=== PATIENT | female | born 1980 | race African-American/Black ===

== ENCOUNTER 2021-01-08 14:08 | Emergency (ER) | payer OTHER, SELFPAY ==
--- NOTE | ~2021-01-08 | XR_ITS ---
EXAMINATION: XR chest 2V DATE: 01/08/2021 14:35 INDICATION: Left-sided chest pain TECHNIQUE: PA and lateral views of the chest were obtained. COMPARISON: Chest radiograph dated 03/27/2015 FINDINGS: The lungs remain clear with no focal airspace opacities, pulmonary edema, pleural effusion or pneumot horax. The cardiomediastinal silhouette is normal. Mild thoracic spondylosis. IMPRESSION: 1. No acute cardiopulmonary disease. Reviewed, dictated and finalized at location A.
--- NOTE | 2021-01-08 14:08 | ECG_ITS ---
Measurements Intervals [place] Rate: 87 P: 57 [place]: 153 QRS: 30 QRSD: 100 T: -12 QT: 352 QTc: 425 Interpretive Statements SINUS RHYTHM MINIMAL Q WAVES- HIGH LATERAL LEADS NONSPECIFIC ST & T-WAVE ABNORMALITY- INF/HIGH LAT LEADS BASELINE ARTIFACT- I, II, III, AVR, AVF BORDERLINE ECG Electronically Signed On 01-08-2021 14:35:35 CDT by Lisandro Freeman D.O.
[2021-01-08 14:10] VITALS: BP 136/73; PULSE 89; RESP 14; TEMP 36.5; O2SAT 98
[2021-01-08 14:56] LABS: Basophils Percent Auto 0.2 % (0.2-1.2); Eosinophils Absolute Auto 0.1 K/mm3 (0-0.3); Eosinophils Percent Auto 1.1 % (0-4.4); Hematocrit 37.4 % (37.0-47.0); Hemoglobin 12.2 g/dL (12.0-15.0); Immature Granulocyte Absolute 0.01 K/mm3 (0.00-0.031); Immature Granulocyte Percent A 0.2 % (0-0.5); Lymphocytes Absolute Auto 2.11 K/mm3 (0.9-3.2); Lymphocytes Percent Auto 33.3 % (18.3-44.2); Mean Corpuscular HGB Conc 32.6 g/dl (32-36); Mean Corpuscular Hemoglobin 29.3 pg (26-34); Mean Corpuscular Volume 89.9 fl (80-100); Monocytes Absolute Auto 0.4 K/mm3 (0.1-0.6); Monocytes Percent Auto 5.8 % (2.6-8.5); Neutrophils Absolute Auto 3.8 K/mm3 (1.3-6.7); Neutrophils Percent Auto 59.4 % (45.5-73.1); Platelet Count Result 246 k/mm3 (150-375); Red Blood Count 4.16 M/mm3 (4.2-5.4); Red Cell Distribution Width 14.2 % (11.5-14.5); White Blood Count 6.3 K/mm3 (4.5-10.0)
[2021-01-08 15:05] LABS: Anion Gap 8 mmol/L (8-16); Blood Urea Nitrogen 14 mg/dL (7-17); Calcium 9.3 mg/dL (8.4-10.2); Carbon Dioxide 27 mmol/L (22-30); Chloride 104 mmol/L (98-107); Estimated CRCL calculation 122 ml/min; Estimated Glomerular Filt Rate > 60; Glucose 107 mg/dL (65-110); Potassium 3.8 mmol/L (3.4-5.0); Prothrombin Time 12.7 Seconds (11.1-14.7); Sodium 139 mmol/L (137-145)
[2021-01-08 15:17] LABS: Troponin I < 0.012 ng/mL (0.000-0.034)
[2021-01-08 16:02] VITALS: PULSE 83; RESP 17; O2SAT 98
[2021-01-08 16:04] VITALS: PULSE 83
[2021-01-08 17:26] VITALS: BP 133/72; PULSE 77; RESP 16; O2SAT 99
[2021-01-08 17:49] LABS: Troponin I < 0.012 ng/mL (0.000-0.034)
--- NOTE | 2021-01-08 17:54 | ED.CHESTPAIN ---
HPI - Chest Pain General Chief Complaint: Chest Pain Stated Complaint: chest pain Time Seen by Provider: 01/08/21 14:58 History of Present Illness HPI narrative: Patient is a 40-year-old female who presents ER with intermittent chest pain. Ongoing for last week. Last episode today 2 hours prior to arrival. Center of her chest. No radiation. Occasionally feels like palpitations. Concerned because she has a family member with history of heart disease. No fevers or chills or sweats. No exertional change regarding her chest pain or shortness of breath. No previous history of CO. Related Data Home Medications Medication Instructions Recorded Confirmed labetalol DAILY 01/08/21 Allergies Allergy/AdvReac Type Severity Reaction Status Date / Time amlodipine Allergy Unknown Swelling Verified 01/08/21 16:08 aspirin Allergy Unknown Other Verified 01/08/21 16:08 lisinopril Allergy Unknown Swelling Verified 01/08/21 16:08 naproxen Allergy Unknown Unknown Verified 04/05/17 14:21 Review of Systems Review of Systems: All systems reviewed & are unremarkable except as noted in HPI and below Constitutional: Constitutional: Denies chills, Denies fever(s) and Denies weakness ENT: Denies nasal congestion and Denies sore throat Cardiovascular: Cardiovascular: Reports chest pain, Denies rapid heart rate and Denies radiating jaw, neck or arm pain Respiratory: Respiratory: Denies chest congestion, Denies cough, Reports dyspnea and Denies wheezing Gastrointestinal: Gastrointestinal: Denies abdominal pain, Denies nausea and Denies vomiting PMFSH Past Medical History Medical History (Updated 01/08/21 @ 19:01 by Celio Joyce MD) MERRY (generalized anxiety disorder) GERD without esophagitis PCOS (polycystic ovarian syndrome) Tachycardia, paroxysmal Surgical History Surgical History (Updated 01/08/21 @ 19:01 by Celio Joyce MD) No pertinent past surgical history Family History Family History (Updated 06/18/17 @ 12:57 by DOCTOR UNKNOWN) Father Hypertension Family history of diabetes mellitus in first degree relative Diabetes mellitus Mother Hypertension Family history of diabetes mellitus in first degree relative Family history of heart disease in male family member before age 55 Diabetes mellitus Sibling Hypertension Social History Social History Smoking status: Former smoker Second hand tobacco smoke exposure: No Smoking end date: 03/29/11 Alcohol intake: never Substance use type: marijuana Exam Narrative: GENERAL: Well-appearing, well-nourished, and in no acute distress. HEAD: Normocephalic, atraumatic. ENT: Mucous membranes moist. CHEST: Clear to auscultation. No respiratory distress. HEART: Regular rate and rhythm. Normal peripheral pulses. ABDOMEN: Soft, nontender, nondistended. EXTREMITIES: Normal range of motion. No edema. SKIN: Warm, dry, no rash. NEURO: Alert and oriented x3. PSYCH: Normal mood and affect. Course Course Emergency Course: Patient informed of results. Troponin is negative x2. Follow-up with PCP. Vital Signs Vital signs: Vital Signs Temperature 97.7 F 01/08/21 14:10 Pulse Rate 89 01/08/21 14:10 Respiratory Rate 14 01/08/21 14:10 Blood Pressure 136/73 01/08/21 14:10 Pulse Oximetry 98 01/08/21 14:10 Temperature 97.7 F 01/08/21 14:10 Pulse Rate 77 01/08/21 17:26 Respiratory Rate 16 01/08/21 17:26 Blood Pressure 133/72 01/08/21 17:26 Pulse Oximetry 99 01/08/21 17:26 MDM - Chest Pain Lab Data Result diagrams: 01/08/21 14:23 01/08/21 14:23 Labs: Lab Results 01/08/21 01/08/21 01/08/21 Range/Units 14:23 14:23 14:23 WBC 6.3 (4.5-10.0) K/mm3 RBC 4.16 L (4.2-5.4) M/mm3 Hgb 12.2 (12.0-15.0) g/dL Hct 37.4 (37.0-47.0) % MCV 89.9 (80-100) fl MCH 29.3 (26-34) pg MCHC 32.6 (32-36) g/dl RDW 14.2 (11.5-14.5) % Plt Count 246 (150-375)
[2021-01-08 19:18] VITALS: BP 136/74; PULSE 81; RESP 20; O2SAT 100
== END 2021-01-08 19:20 | disposition home or self-care (01) ==
PROVIDERS: Emergency Medicine; Emergency Provider Emergency Medicine
DX: R07.89 Other chest pain (principal); K21.9 Gastro-esophageal reflux disease without esophagitis; E28.2 Polycystic ovarian syndrome; R94.31 Abnormal electrocardiogram [ECG] [EKG]
CPT/HCPCS: 36415; 71046; 80048; 84484; 85025; 85610; 85730; 93005; 99284

== ENCOUNTER 2021-06-30 15:08 | Emergency (ER) | payer OTHER, SELFPAY ==
[2021-06-30 15:14] VITALS: BP 143/93; PULSE 94; RESP 16; TEMP 36.4; O2SAT 100
--- NOTE | 2021-06-30 15:15 | ED.GENADULT ---
HPI - General Adult General Chief complaint: Medical Clearance Stated complaint: Blood pressure. Time Seen by Provider: 06/30/21 15:23 Source: patient Mode of arrival: ambulatory Limitations: no limitations History of Present Illness HPI narrative: 40-year-old female presented requesting refill for labetalol. She states she is scheduled with a new PCP in about 2 weeks and has only about 1 pill left. She endorses occasional palpitations at rest. She denies chest pain, shortness of breath, wheezing, swelling, headache or dizziness. Related Data Allergies Allergy/AdvReac Type Severity Reaction Status Date / Time amlodipine Allergy Unknown Swelling Verified 06/30/21 15:18 aspirin Allergy Unknown Other Verified 06/30/21 15:18 lisinopril Allergy Unknown Swelling Verified 06/30/21 15:18 naproxen Allergy Unknown Unknown Verified 06/30/21 15:18 Review of Systems Review of Systems: CONSTITUTIONAL: Denies body aches, fever, chills, or sweats. EYES: Denies visual changes, redness, or discharge. ENT: Denies rhinorrhea, congestion, sore throat, or otalgia. CARDIOVASCULAR: Denies chest pain or edema. RESPIRATORY: Denies cough or dyspnea. GASTROINTESTINAL: Denies abdominal pain, nausea, vomiting, or diarrhea. GENITOURINARY: Denies dysuria or hematuria. SKIN: Denies rash, itching, or wounds. MUSCULOSKELETAL: Denies back pain, joint pain, or myalgia. NEUROLOGIC: Denies headache, numbness, tingling, or weakness. PSYCH: Denies depression or anxiety. All systems reviewed & are unremarkable except as noted in HPI and below PMFSH Past Medical History Medical History (Updated 06/30/21 @ 15:25 by Niyah Cuba APRN) MERRY (generalized anxiety disorder) GERD without esophagitis PCOS (polycystic ovarian syndrome) Tachycardia, paroxysmal Surgical History Surgical History No pertinent past surgical history Family History Family History Father Hypertension Family history of diabetes mellitus in first degree relative Diabetes mellitus Mother Hypertension Family history of diabetes mellitus in first degree relative Family history of heart disease in male family member before age 55 Diabetes mellitus Sibling Hypertension Social History Social History Smoking status: Former smoker Second hand tobacco smoke exposure: No Smoking end date: 03/29/11 Alcohol intake: never Substance use type: marijuana Comments At time of signature, I have reviewed and agree with nursing past medical, surgical, social and family history unless otherwise noted. Please see nursing chart for further information. There is no relevant family history pertinent to the presenting complaint Exam Narrative: GENERAL: Well-appearing, well-nourished HEAD: Normocephalic, atraumatic. EYES: EOMI. No redness or drainage. Conjunctivae normal. ENT: Mucous membranes pink and moist. No rhinorrhea. TMs normal bilaterally. Throat normal. Uvula midline. NECK: Normal AROM. Supple. No lymphadenopathy. CHEST: No respiratory distress. Clear to auscultation. HEART: Regular rate and rhythm. No murmur appreciated. Normal peripheral pulses. ABDOMEN: Soft, nontender, nondistended, normal active bowel sounds. MUSCULOSKELETAL: No bony tenderness. EXTREMITIES: Normal range of motion. No edema. SKIN: Warm, dry, no rash. Capillary refill normal. Normal skin turgor. NEURO: No focal deficits. Alert and oriented x3. Gait steady. PSYCH: Normal affect. No signs of depression or anxiety. Course Course Emergency Course: Patient is aware of diagnosis, understands and agrees to treatment plan. Anticipatory guidance given. Patient agrees to follow-up as directed and is aware of reasons to seek care at the emergency department. Portions of this record may have been created with voice recognition softwar
== END 2021-06-30 15:29 | disposition home or self-care (01) ==
PROVIDERS: Emergency Provider Nurse Practitioner Family
DX: I11.0 Hypertensive heart disease with heart failure (principal); Z76.0 Encounter for issue of repeat prescription; K21.9 Gastro-esophageal reflux disease without esophagitis; E28.2 Polycystic ovarian syndrome; Z87.891 Personal history of nicotine dependence; F12.90 Cannabis use, unspecified, uncomplicated
CPT/HCPCS: 99211; G0463

== ENCOUNTER 2024-03-14 07:37 | Emergency (ER) | payer OTHER, SELFPAY ==
--- NOTE | ~2024-03-14 | XR_ITS ---
3 VIEWS THORACIC SPINE Ordering provider: Jacobo Melchor MD History: . back pain X LAST WEEK AFTER BEING DX WITH PNEUMONIA . Comparison: None. FINDINGS: VERTEBRAL BODIES: Normal height and alignment. No visible fracture or subluxation. Degenerative amin es of the spine. DISK SPACES: Multilevel degenerative disc disease. SOFT TISSUES: Normal. IMPRESSION: No acute osseous abnormality of the thoracic spine. Multilevel degenerative disc disease Reviewed, dictated and finalized at location A. R
--- NOTE | ~2024-03-14 | XR_ITS ---
3 VIEWS LUMBAR SPINE Ordering provider: Jacobo Melchor MD History: . back pain X LAST WEEK AFTER BEING DX WITH PNUEMONIA . Comparison: None. FINDINGS: VERTEBRAL BODIES: No visible fracture or subluxation. DISK SPACES: Normal. SOFT TISSUES: Normal. IMPRESSION: No acute osseous abnormality lumbar spine. Reviewed, dictated and finalized at location A. 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
--- NOTE | ~2024-03-14 | XR_ITS ---
EXAMINATION: XR chest 2V DATE: 03/14/2024 09:13 INDICATION: Shortness of breath TECHNIQUE: PA and lateral views of the chest were obtained. COMPARISON: Chest radiograph dated 01/08/2021 FINDINGS: The lungs remain clear with no focal airspace opacities, pulmonary edema, pleural effusion or pneumot horax. The cardiomediastinal silhouette is normal. Mild thoracic spondylosis. IMPRESSION: 1. No acute cardiopulmonary disease. Reviewed, dictated and finalized at location A. 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
[2024-03-14 07:40] VITALS: BP 144/75; PULSE 92; RESP 18; TEMP 36.1; O2SAT 97
[2024-03-14 08:06] LABS: Basophils Percent Auto 0.4 % (0.2-1.2); Eosinophils Absolute Auto 0.1 K/mm3 (0-0.3); Eosinophils Percent Auto 1.7 % (0-4.4); Hematocrit 39.8 % (37.0-47.0); Hemoglobin 12.4 g/dL (12.0-15.0); Immature Granulocyte Absolute 0.03 K/mm3 (0.00-0.031); Immature Granulocyte Percent A 0.4 % (0-0.5); Lymphocytes Absolute Auto 3.02 K/mm3 (0.9-3.2); Lymphocytes Percent Auto 36.3 % (18.3-44.2); Mean Corpuscular HGB Conc 31.2 g/dl (32-36); Mean Corpuscular Hemoglobin 28.6 pg (26-34); Mean Corpuscular Volume 91.7 fl (80-100); Mean Platelet Volume 10.2 fl (7.4-10.4); Monocytes Absolute Auto 0.4 K/mm3 (0.1-0.6); Monocytes Percent Auto 4.9 % (2.6-8.5); Neutrophils Absolute Auto 4.7 K/mm3 (1.3-6.7); Neutrophils Percent Auto 56.3 % (45.5-73.1); Platelet Count Result 298 k/mm3 (150-375); Red Blood Count 4.34 M/mm3 (4.2-5.4); Red Cell Distribution Width 15.2 % (11.5-14.5); White Blood Count 8.3 K/mm3 (4.5-10.0)
[2024-03-14 08:15] LABS: Alanine Aminotransferase 13 U/L (6-35); Alkaline Phosphatase 65 U/L (38-126); Anion Gap 3 mmol/L (4-12); Aspartate Amino Transferase 18 U/L (14-36); Bilirubin,Total 0.5 mg/dL (0.2-1.3); Blood Urea Nitrogen 16 mg/dL (7-17); Carbon Dioxide 30 mmol/L (22-30); Chloride 104 mmol/L (98-107); Estimated CRCL calculation 126 ml/min; Estimated Glomerular Filt Rate > 60; Glucose 113 mg/dL (65-110); Potassium 3.9 mmol/L (3.4-5.0); Sodium 137 mmol/L (137-145)
[2024-03-14 08:20] LABS: BEDSIDEPREGUCG Negative (Negative)
--- NOTE | 2024-03-14 08:30 | ED_ITS ---
HPI - General Adult General Chief complaint: Back Pain/Injury Stated complaint: back pain r/t pneumonia Time Seen by Provider: 03/14/24 07:53 History of Present Illness HPI narrative: 43-year-old female presents to the emergency department for evaluation for lower back pain. Patient reports that she just finished antibiotics for a pneumonia and does report some left flank pain and lower back pain. Patient states she completed antibiotics on Wednesday but patient is still having rib and lower back pain. Patient has not been taking any Tylenol or ibuprofen for this pain. Related Data Allergies Allergy/AdvReac Type Severity Reaction Status Date / Time amlodipine Allergy Unknown Swelling Verified 03/14/24 07:38 aspirin Allergy Unknown Other Verified 03/14/24 07:38 lisinopril Allergy Unknown Swelling Verified 03/14/24 07:38 naproxen Allergy Unknown Unknown Verified 03/14/24 07:38 Review of Systems 2 Review of Systems: All systems reviewed & are unremarkable except as noted in HPI and below PMFSH Past Medical History Medical History (Updated 03/14/24 @ 09:22 by Jacobo Melchor MD) MERYR (generalized anxiety disorder) GERD without esophagitis PCOS (polycystic ovarian syndrome) Tachycardia, paroxysmal Surgical History Surgical History No pertinent past surgical history Family History Family History Father Hypertension Family history of diabetes mellitus in first degree relative Diabetes mellitus Mother Hypertension Family history of diabetes mellitus in first degree relative Family history of heart disease in male family member before age 55 Diabetes mellitus Sibling Hypertension Social History Social History Smoking status: Former smoker Second hand tobacco smoke exposure: No Smoking end date: 03/29/11 Alcohol intake: never Substance use type: marijuana Exam 2 Narrative: APPEARANCE: Well appearing, no pain, no distress, well-nourished. HEAD: normocephalic, atraumatic. EYES: PERRLA/EOMI, conjunctivae clear. NOSE: Normal no drainage EARS:TMS clear with good light reflex. THROAT: Pharynx clear, no exudate. NECK: Supple. No adenopathy, no masses. RESPIRATORY: Airway patent, respirations nonlabored. Clear to auscultation bilaterally, no rales, rhonchi, wheezing. CARDIOVASCULAR: Regular rate and rhythm without murmurs rubs or gallops. ABDOMINAL: Soft, nontender, nondistended, normal bowel sounds MUSCULOSKELETAL: Moves all extremities. Strength/ROM intact, No edema, No calf tenderness. NEURO: Alert. Cranial nerves II through XII intact. Good gait. Good coordination SKIN: Warm, dry. Normal Color Course Vital Signs Vital signs: Vital Signs Temperature 97.0 F L 03/14/24 07:40 Pulse Rate 92 03/14/24 07:40 Respiratory Rate 18 03/14/24 07:40 Blood Pressure 144/75 H 03/14/24 07:40 Pulse Oximetry 97 03/14/24 07:40 Oxygen Delivery Room Air 03/14/24 07:40 Temperature 97.0 F L 03/14/24 07:40 Pulse Rate 92 03/14/24 07:40 Respiratory Rate 18 03/14/24 07:40 Blood Pressure 144/75 H 03/14/24 07:40 Pulse Oximetry 97 03/14/24 07:40 Oxygen Delivery Room Air 03/14/24 07:40 Medical Decision Making MDM Narrative Medical decision making narrative: 43-year-old female presents emergency department for evaluation for low back pain and rib pain after recently completing antibiotics. Patient's chest x-ray showed no acute cardiopulmonary abnormality. X-rays were negative for acute fracture dislocation. Suspect patient is still recovering from her recent pneumonia. Patient was advised to take Tylenol and ibuprofen for body aches. Patient was also encouraged close follow-up with her primary care physician. All questions concerns were addressed. Differential Diagnosis Differential Diagnosis: Pneumonia, rib fracture, rib contusion, body aches, viral etiology Vital Signs Vital Signs: Vital Signs Temperature 97.0 F L 03/14/24 07:40 Pulse Rate 92 03/14/24 07:40 Respiratory Rate 18 03/14/24 07:40 Blood Pressure 144/75 H 03/14/24 07:40 Pulse Oximetry 97 03/14/24 07:40 Oxygen Delivery Room Air 03/14/24 07:40 Temperature 97.0 F L 03/14/24 07:40 Pulse Rate 92 03/14/24 07:40 Respiratory Rate 18 03/14/24 07:40 Blood Pressure 144/75 H 03/14/24 07:40 Pulse Oximetry 97 03/14/24 07:40 Oxygen Delivery Room Air 03/14/24 07:40 Lab Data Lab results reviewed: Yes I reviewed the patient's lab results. 03/14/24 07:57 03/14/24 07:57 Labs: Lab Results 03/14/24 03/14/24 03/14/24 Range/Units 07:57 08:16 08:18 WBC 8.3 (4.5-10.0) K/mm3 RBC 4.34 (4.2-5.4) M/mm3 Hgb 12.4 (12.0-15.0) g/dL Hct 39.8 (37.0-47.0) % MCV 91.7 (80-100) fl MCH 28.6 (26-34) pg MCHC 31.2 L (32-36) g/dl RDW 15.2 H (11.5-14.5) % Plt Count 298 (150-375) k/mm3 MPV 10.2 (7.4-10.4) fl Immature Gran % (Auto) 0.4 (0-0.5) % Neut % (Auto) 56.3 (45.5-73.1) % Lymph % (Auto) 36.3 (18.3-44.2) % [place] % (Auto) 4.9 (2.6-8.5) % Eos % (Auto) 1.7 (0-4.4) % Baso % (Auto) 0.4 (0.2-1.2) % Lymph # (Auto) 3.02 (0.9-3.2) K/mm3 [place] # (Auto) 0.4 (0.1-0.6) K/mm3 Eos # (Auto) 0.1 (0-0.3) K/mm3 Baso # (Auto) 0.0 (0.0-0.1) K/mm3 Abs Immat Gran (auto) 0.03 (0.00-0.031) K/mm3 Absolute Neuts (auto) 4.7 (1.3-6.7) K/mm3 Absolute Nucleated RBC 0.000 (0.0-0.012) K/mm3 Nucleated RBC % 0.0 (0.0-0.2) % Sodium 137 (137-145) mmol/L Potassium 3.9 (3.4-5.0) mmol/L Chloride 104 (98-107) mmol/L Carbon Dioxide 30 (22-30) mmol/L Anion Gap 3 L (4-12) mmol/L BUN 16 (7-17) mg/dL Creatinine 0.70 (0.7-1.0) mg/dL Estim Creat Clear Calc 126 ml/min Estimated GFR > 60 (59 - ) Glucose 113 H (65-110) mg/dL Calcium 9.0 (8.4-10.2) mg/dL Total Bilirubin 0.5 (0.2-1.3) mg/dL AST 18 (14-36) U/L ALT 13 (6-35) U/L Alkaline Phosphatase 65 (38-126) U/L Total Protein 8.0 (6.3-8.2) g/dL Albumin 4.0 (3.5-5.1) g/dL Urine Color Yellow (Yellow) Urine Appearance Clear (Clear) Urine pH 5.5 (5.0-9.0) Ur Specific [place] 1.025 (1.001-1.035) Urine Protein Trace (Negative) mg/dL Urine Glucose (UA) Negative (Negative) mg/dL Urine Ketones Negative (Negative) mg/dL Ur Blood (Man) 3+ H (Negative) Urine Nitrate Negative (Negative) Urine Bilirubin Negative (Negative) Urine Urobilinogen 1.0 (<2.0) mg/dL Leukocyte Esterase Rfl Negative (Negative) AUBRIE/UL Urine RBC 6-10 H (0-2) /hpf Urine WBC 0-5 (0-3) /hpf Ur Squamous Epith Cells Moderate (Few) /hpf Urine Bacteria 1+ H /hpf Urine Casts 0-2 POC Urine HCG, Qual Negative (Negative) Imaging Data Radiologist's impression: Impressions Chest X-Ray 03/14/24 09:14 IMPRESSION: 1. No acute cardiopulmonary disease. Lumbar Spine X-Ray 03/14/24 09:15 IMPRESSION: No acute osseous abnormality lumbar spine. Thoracic Spine X-Ray 03/14/24 09:16 IMPRESSION: No acute osseous abnormality of the thoracic spine. Multilevel degenerative disc disease Discharge Plan Discharge Clinical Impression: Strain of lumbar region, Back pain Patient Disposition: Home, Self-Care Condition: Stable Instructions: Antibiotic Form, Acute Low Back Pain (ED) Additional Instructions: Tylenol and ibuprofen for pain control. Have close follow-up with her primary care physician. If you have any worsening symptoms then please call or return to the emergency department. Patient Language: [place] Prescriptions: No Action labetalol 100 mg tablet 100 mg PO DAILY 30 Days Qty: 30 0RF Follow-up/Referrals: Gael,Janiya Tobin MD [Primary Care Provider] -
[2024-03-14 08:39] LABS: Add Urine Microscopic? YES; Appearance Urine Clear (Clear); Bacteria Urine 1+ /hpf; Bilirubin Urine Negative (Negative); Blood Urine 3+ (Negative); Color Urine Yellow (Yellow); Glucose Urine UA Negative (Negative); Ketones Urine Negative (Negative); Leukocyte Esterase Ur Negative LEU/UL (Negative); Nitrate Urine Negative (Negative); Non Pathogenic Casts 0-2; Protein Urine Trace mg/dL (Negative); Specific Grav Ur 1.025 (1.001-1.035); Squamous Epithelial Cell Urine Moderate /hpf (Few); WBC Urine 0-5 /hpf (0-3); pH Urine 5.5 (5.0-9.0)
[2024-03-14] MEDS: HYDROcodone/acetaminophen (*CRX) 5-325 MG TABLET 1 TAB PO (08:43)
== END 2024-03-14 09:33 | disposition home or self-care (01) ==
PROVIDERS: Emergency Provider Emergency Medicine; PCP Internal Medicine Gastroenterology
DX: S39.012A Strain of muscle, fascia and tendon of lower back, initial encounter (principal); K21.9 Gastro-esophageal reflux disease without esophagitis; E28.2 Polycystic ovarian syndrome; Z87.01 Personal history of pneumonia (recurrent); Z87.891 Personal history of nicotine dependence; M51.34 Other intervertebral disc degeneration, thoracic region; X58.XXXA Exposure to other specified factors, initial encounter
CPT/HCPCS: 36415; 71046; 72072; 72100; 80053; 81001; 81025; 85025; 99283; A9270

== ENCOUNTER 2024-05-09 16:14 | Emergency (ER) | payer MEDICAID, SELFPAY ==
--- NOTE | ~2024-05-09 | XR_ITS ---
EXAMINATION: XR chest 2V DATE: 05/09/2024 16:35 INDICATION: Cough and fever. TECHNIQUE: Frontal and lateral views of the chest were obtained. COMPARISON: Chest 2 views 03/14/24 FINDINGS: There is no pneumonia, pleural effusion, or pneumothorax. The heart size is normal. IMPRESSION: 1. No acute cardiopulmonary disease. Reviewed, dictated and finalized at location A. ATOR CORE TESTER
--- NOTE | 2024-05-09 16:16 | ED_ITS ---
HPI - URI/Sore Throat General Chief Complaint: Upper Respiratory Infection Stated Complaint: Pneumonia Symptoms Source: patient and RN notes reviewed Mode of arrival: ambulatory Limitations: no limitations History of Present Illness HPI Narrative: Patient is a 43-year-old female who presents to the [facility] with complaints of cough that has been ongoing since Wednesday. She states that it was productive with yellow sputum and is now nonproductive. She also reports nasal congestion and rhinorrhea. States that she has been experiencing body aches, headache, chills, and fever. She states that she had similar symptoms 1 month ago when she was diagnosed with pneumonia. Related Data Home Medications ?Medication ?Instructions ?Recorded ?Confirmed ?Last Taken ?Type losartan 50 mg tablet 50 mg PO DAILY 05/09/24 05/09/24 Unknown History Allergies Allergy/AdvReac Type Severity Reaction Status Date / Time amlodipine Allergy Unknown Swelling Verified 05/09/24 16:19 aspirin Allergy Unknown Other Verified 05/09/24 16:19 lisinopril Allergy Unknown Swelling Verified 05/09/24 16:19 naproxen Allergy Unknown Unknown Verified 05/09/24 16:19 Review of Systems Review of Systems: CONSTITUTIONAL: reports fever and chills. EYES: Denies visual changes, redness, or discharge. ENT: Denies otalgia and sore throat. Reports congestion and rhinorrhea CARDIOVASCULAR: Denies chest pain, palpitations, or edema. RESPIRATORY: Reports cough but denies dyspnea. GASTROINTESTINAL: Denies abdominal pain, nausea, vomiting, or diarrhea. GENITOURINARY: Denies dysuria or hematuria. SKIN: Denies rash or itching. MUSCULOSKELETAL: Denies back pain, joint pain, but reports myalgia. NEUROLOGIC: Denies headache, numbness, or weakness. Pertinent positives per HPI. [facility] Past Medical History Medical History MERRY (generalized anxiety disorder) GERD without esophagitis PCOS (polycystic ovarian syndrome) Tachycardia, paroxysmal Surgical History Surgical History No pertinent past surgical history Family History Family History Father Hypertension Family history of diabetes mellitus in first degree relative Diabetes mellitus Mother Hypertension Family history of diabetes mellitus in first degree relative Family history of heart disease in male family member before age 55 Diabetes mellitus Sibling Hypertension Social History Social History Smoking status: Former smoker Second hand tobacco smoke exposure: No Smoking end date: 03/29/11 Alcohol intake: never Substance use type: marijuana Comments At the time of my signature, I reviewed and agree with the nursing past medical, surgical, social, and family history. There is no relevant family history pertinent to the patient complaint. Exam Narrative: GENERAL: This is a well-nourished, well-developed patient, in no apparent distress. HEAD: normocephalic, atraumatic. EYES: PERRL. Sclera clear/white. Vision is grossly intact. EARS: External ears normal, auditory canals clear and without drainage, TMs normal without perforation. Hearing grossly intact. NOSE: External nose normal with no obvious nasal discharge, nares without redness, no rhinorrhea. THROAT: Mucous membranes moist, posterior pharynx clear. NECK: Neck supple, non-tender without lymphadenopathy, masses or thyromegaly. CARDIOVASCULAR: Regular rate and rhythm without murmurs, gallops, or rubs. RESPIRATORY: Clear to auscultation. Breath sounds equal bilaterally. No wheezes, rales, or rhonchi. GASTROINTESTINAL: Abdomen soft, non-tender, nondistended. Bowel sounds are active. No hepato-splenomegaly, or palpable masses. No guarding. SKIN: warm, intact with no suspicious lesions or rash, good texture and turgor. NEURO: awake, alert, and oriented to person, place and time. There were no obvious focal neurologic abnormalities. EXTREMITIES: No clubbing, cyanosis, or edema. No joint tenderness, effusion, or edema noted. BACK: Nontender without deformity or crepitance. No flank tenderness. Course Course Level of Care: Express Care Visit Vital Signs Vital signs: Vital Signs Temperature 97.9 F 05/09/24 16: Pulse Rate 99 05/09/24 16: Respiratory Rate 16 05/09/24 16: Blood Pressure 134/78 05/09/24 16: Pulse Oximetry 100 05/09/24 16: Temperature 97.9 F 05/09/24 16: Pulse Rate 99 05/09/24 16:25 Respiratory Rate 16 05/09/24 16:25 Blood Pressure 134/78 05/09/24 16:25 Pulse Oximetry 100 05/09/24 16:25 Reviewed MDM - URI/Sore Throat MDM Narrative Medical decision making narrative: Take steroids as directed. May use the inhaler every 4-6 hours as needed for coughing. Increase fluids at home. Avoid any and all smoke. May use a humidifier in the bedroom. Increase your Vitamin C. Follow-up with personal physician in 2-5 days. Differential Diagnosis Differential diagnosis: Likely upper respiratory infection, viral infection, influenza and other (covid, pneumonia) Lab Data Attestation: I reviewed the patient's lab results. Labs: Lab Results 05/09/24 Range/Units 16:38 POC Influenza A Ag Negative (Negative) POC Influenza B Ag Negative (Negative) POC SARS CoV-2 Ag Negative (Negative) Imaging Data Attestation: I personally reviewed and interpreted this imaging study as follows: Radiologist's impression: [address] [place] [address] XRay Report Signed Patient: Hien Chino : 1980 MR#: [id number] Age: 43 Acct:[id number] Loc: [facility] ADM Date: 05/09/24Attending Dr: Ordering Physician: Christa Yepez APRN Date of Service: 05/09/24 Procedure(s): XR chest 2V Accession Number(s): [id number] cc: Christa Yepez APRN; Gael, Janiya Tobin MD~ EXAMINATION: XR chest 2V DATE: 05/09/2024 16:35 INDICATION: Cough and fever. TECHNIQUE: Frontal and lateral views of the chest were obtained. COMPARISON: Chest 2 views 03/14/24 FINDINGS: There is no pneumonia, pleural effusion, or pneumothorax. The heart size is normal. IMPRESSION: 1. No acute cardiopulmonary disease. Reviewed, dictated and finalized at location A. DENTIAL WORKER Please be advised this is a medical document. It is intended for [id number]-ysgo communication. It is written in medical language and may contain unfamiliar abbreviations or verbiage. Medical documents are intended to carry relevant information, facts as evident, and the clinical opinion of the practitioner at the time of the encounter. This report may have been done utilizing a voice recognition system. Attempts have been made to correct errors. However, there may be uncorrected grammatical, spelling, and recognition errors present. The file time of this note does not necessarily represent the time of service. Dictated By: Titus Salas MD 05/09/24 1637 Signed By: <Electronically signed by Titus Salas MD in OV> 05/09/24 1638 Critical Care Time Critical Care Time Critical Care Time: No Discharge Plan Discharge Clinical Impression: Acute viral bronchitis Patient Disposition: Home, Self-Care Condition: Stable Instructions: Acute Bronchitis (ED) Additional Instructions: Take steroids as directed. May use the inhaler every 4-6 hours as needed for coughing. Increase fluids at home. Avoid any and all smoke. May use a humidifier in the bedroom. Increase your Vitamin C. Follow-up with personal physician in 2-5 days. Patient Language: Honduran Prescriptions: New prednisone 50 mg tablet 50 mg PO BID 5 Days Qty: 10 0RF albuterol sulfate [Ventolin HFA] 90 mcg/actuation HFA aerosol inhaler 2 puff inhalation QID PRN (Reason: shortness of breath or wheezing) Qty: 8.5 0RF No Action losartan 50 mg tablet 50 mg PO DAILY Follow-up/Referrals: Nacho,Janiya Tobin MD [Primary Care Provider] - Time of Disposition: 16:45
[2024-05-09 16:25] VITALS: BP 134/78; PULSE 99; RESP 16; TEMP 36.6; O2SAT 100
[2024-05-09 16:38] LABS: EDCOVIDSCREEN Negative (Negative); EDINFLUASCREEN Negative (Negative); EDINFLUBSCREEN Negative (Negative)
== END 2024-05-09 16:48 | disposition home or self-care (01) ==
PROVIDERS: Emergency Provider Nurse Practitioner; PCP Internal Medicine Gastroenterology
DX: J20.8 Acute bronchitis due to other specified organisms (principal); Z20.822 Contact with and (suspected) exposure to COVID-19; Z87.891 Personal history of nicotine dependence; F12.90 Cannabis use, unspecified, uncomplicated; E28.2 Polycystic ovarian syndrome; K21.9 Gastro-esophageal reflux disease without esophagitis
CPT/HCPCS: 71046; 87426; 87804; 99213; G0463

== ENCOUNTER 2024-09-16 18:33 | Emergency (ER) | payer MEDICAID, SELFPAY ==
[2024-09-16 18:41] VITALS: BP 136/80; PULSE 94; RESP 16; TEMP 36.4; O2SAT 99
[2024-09-16 18:51] LABS: EDSTREPNEGPOS1 Negative (Negative)
--- NOTE | 2024-09-16 19:04 | ED_ITS ---
HPI - General Adult General Chief complaint: Upper Respiratory Infection Stated complaint: Strep Symptoms Source: patient Mode of arrival: ambulatory History of Present Illness HPI narrative: Patient presents for evaluation of sore throat for the last 2 weeks. She states that her daughter was recently diagnosed with strep throat. She has also experienced a cough for about month. Cough is mild and dry. She denies any chills, nausea, vomiting, diarrhea, shortness of breath. She does not smoke. Related Data Home Medications ?Medication ?Instructions ?Recorded ?Confirmed ?Last Taken ?Type losartan 50 mg tablet 50 mg PO DAILY 05/09/24 05/09/24 Unknown History Allergies Allergy/AdvReac Type Severity Reaction Status Date / Time amlodipine Allergy Unknown Swelling Verified 05/09/24 16:19 aspirin Allergy Unknown Other Verified 05/09/24 16:19 lisinopril Allergy Unknown Swelling Verified 05/09/24 16:19 naproxen Allergy Unknown Unknown Verified 05/09/24 16:19 Review of Systems Review of Systems: CONSTITUTIONAL: Denies fever, chills, or sweats. EYES: Denies visual changes, redness, or discharge. ENT: Reports sore throatDenies rhinorrhea, congestion, or otalgia. CARDIOVASCULAR: Denies chest pain, palpitations, or edema. RESPIRATORY: reports mild nonproductive cough. Denies shortness of breath GASTROINTESTINAL: Denies abdominal pain, nausea, vomiting, or diarrhea. GENITOURINARY: Denies dysuria or hematuria. SKIN: Denies rash or itching. MUSCULOSKELETAL: Denies back pain, joint pain, or myalgia. NEUROLOGIC: Denies headache, numbness, dizziness, or weakness. PSYCHIATRIC: Denies anxiety or depression. [facility] Past Medical History Medical History MERRY (generalized anxiety disorder) GERD without esophagitis PCOS (polycystic ovarian syndrome) Tachycardia, paroxysmal Surgical History Surgical History No pertinent past surgical history Family History Family History Father Hypertension Family history of diabetes mellitus in first degree relative Diabetes mellitus Mother Hypertension Family history of diabetes mellitus in first degree relative Family history of heart disease in male family member before age 55 Diabetes mellitus Sibling Hypertension Social History Social History Smoking status: Former smoker Second hand tobacco smoke exposure: No Smoking end date: 03/29/11 Alcohol intake: never Substance use type: marijuana Exam Narrative: GENERAL: Well-appearing, well-nourished, and in no acute distress. HEAD: Normocephalic, atraumatic. EYES: PERRLA and EOMI. ENT: Nares clear, no rhinorrhea or epistaxis. Mucous membranes moist. Oropharynx without tonsillar hypertrophy exudate or other lesions. There is mild posterior pharyngeal erythema. Bilateral TMs pearly remy. There is visible air fluid line behind right TM. NECK: Supple. No adenopathy or masses. No carotid bruits or JVD CHEST: Clear to auscultation. No respiratory distress. No wheezes rales or rhonchi HEART: Regular rate and rhythm. No murmur heard. Normal peripheral pulses. ABDOMEN: Soft, nontender, nondistended, normal active bowel sounds. EXTREMITIES: Normal range of motion. No edema. SKIN: Warm, dry, no rash. NEURO: No focal deficits. Alert and oriented x3. PSYCH: Normal mood and affect. Course Course Emergency Course: This is a 43-year-old female who presented for evaluation of sore throat cough. Rapid strep negative. Through shared decision making opted to proceed with antibiotic therapy due to recent diagnosis of strep for her daughter. She has no adventitious lung sounds warranting imaging. Will discharge with Augmentin. Follow-up with primary provider. To the ER for worsening symptoms. Patient in agreement with plan of care. Level of Care: Express Care Visit Vital Signs Vital signs: Vital Signs Temperature 36.4 C L 09/16/24 18:41 Pulse Rate 94 09/16/24 18:41 Respiratory Rate 16 09/16/24 18:41 Blood Pressure 136/80 09/16/24 18:41 Pulse Oximetry 99 09/16/24 18:41 Temperature 36.4 C L 09/16/24 18:41 Pulse Rate 94 09/16/24 18:41 Respiratory Rate 16 09/16/24 18:41 Blood Pressure 136/80 09/16/24 18:41 Pulse Oximetry 99 09/16/24 18:41 Medical Decision Making Vital Signs Vital Signs: Vital Signs Temperature 36.4 C L 09/16/24 18:41 Pulse Rate 94 09/16/24 18:41 Respiratory Rate 16 09/16/24 18:41 Blood Pressure 136/80 09/16/24 18:41 Pulse Oximetry 99 09/16/24 18:41 Temperature 36.4 C L 09/16/24 18:41 Pulse Rate 94 09/16/24 18:41 Respiratory Rate 16 09/16/24 18:41 Blood Pressure 136/80 09/16/24 18:41 Pulse Oximetry 99 09/16/24 18:41 Lab Data Labs: Lab Results 09/16/24 Range/Units 18:50 POC Grp A Strep Screen Negative (Negative) Discharge Plan Discharge Clinical Impression: Pharyngitis, Exposure to strep throat Patient Disposition: Home Condition: Stable Instructions: Antibiotic Form, Pharyngitis (ED) Patient Language: Upper Sorbian Prescriptions: New amoxicillin-pot clavulanate 875-125 mg tablet 1 tablet PO Q12H Qty: 20 0RF No Action losartan 50 mg tablet 50 mg PO DAILY albuterol sulfate [Ventolin HFA] 90 mcg/actuation HFA aerosol inhaler 2 puff inhalation QID PRN (Reason: shortness of breath or wheezing) Qty: 8.5 0RF Follow-up/Referrals: Giuseppe Zhang MD [Physician] - Time of Disposition: 19:01
== END 2024-09-16 19:04 | disposition home or self-care (01) ==
PROVIDERS: Emergency Provider Nurse Practitioner
DX: J02.9 Acute pharyngitis, unspecified (principal); Z20.818 Contact with and (suspected) exposure to other bacterial communicable diseases; Z87.891 Personal history of nicotine dependence; F12.90 Cannabis use, unspecified, uncomplicated; K21.9 Gastro-esophageal reflux disease without esophagitis; E28.2 Polycystic ovarian syndrome
CPT/HCPCS: 87081; 87880; 99213; G0463

== ENCOUNTER 2024-12-28 09:05 | Emergency (ER) | payer SELFPAY ==
[2024-12-28 09:19] VITALS: BP 133/79; PULSE 85; RESP 18; TEMP 36.6; O2SAT 100
[2024-12-28 09:43] LABS: EDSTREPNEGPOS1 Negative (Negative)
--- NOTE | 2024-12-28 10:13 | ED.URI ---
HPI - URI/Sore Throat General Chief Complaint: Upper Respiratory Infection Stated Complaint: tested for strep Time Seen by Provider: 12/28/24 09:45 Source: patient and RN notes reviewed Mode of arrival: ambulatory Limitations: no limitations History of Present Illness HPI Narrative: 44-year-old female presents Express Care thought her complaining of sore throat and headache for 2 days. Patient denies any other upper respiratory symptoms, fevers, body aches, chills, nausea vomiting, chest pain, difficulty breathing, or other symptoms. Patient has not tried any grfj-ksf-demfheu to help with symptoms. Reports a history of hypertension. Patient states she was exposed to a family member with strep throat. Related Data Home Medications ?Medication ?Instructions ?Recorded ?Confirmed ?Last Taken ?Type losartan 50 mg tablet 50 mg PO DAILY 05/09/24 12/28/24 Unknown History Allergies Allergy/AdvReac Type Severity Reaction Status Date / Time amlodipine Allergy Unknown Swelling Verified 12/28/24 09:26 aspirin Allergy Unknown Other Verified 12/28/24 09:26 lisinopril Allergy Unknown Swelling Verified 12/28/24 09:26 naproxen Allergy Unknown Unknown Verified 12/28/24 09:26 Review of Systems Review of Systems: CONSTITUTIONAL: Denies fever, chills, or sweats. EYES: Denies visual changes, redness, or discharge. ENT: Denies rhinorrhea, congestion, or otalgia. Positive for sore throat. CARDIOVASCULAR: Denies chest pain, palpitations, or edema. RESPIRATORY: Denies cough or dyspnea. GASTROINTESTINAL: Denies abdominal pain, nausea, vomiting, or diarrhea. GENITOURINARY: Denies dysuria or hematuria. SKIN: Denies rash or itching. MUSCULOSKELETAL: Denies back pain, joint pain, or myalgia. NEUROLOGIC: Positive for headache. Negative for numbness, or weakness. PSYCHIATRIC: Denies anxiety or depression. All other systems reviewed are negative, except as documented in HPI. [facility] Past Medical History Medical History MERRY (generalized anxiety disorder) GERD without esophagitis PCOS (polycystic ovarian syndrome) Tachycardia, paroxysmal Surgical History Surgical History No pertinent past surgical history Family History Family History Father Hypertension Family history of diabetes mellitus in first degree relative Diabetes mellitus Mother Hypertension Family history of diabetes mellitus in first degree relative Family history of heart disease in male family member before age 55 Diabetes mellitus Sibling Hypertension Social History Social History Smoking status: Former smoker Second hand tobacco smoke exposure: No Smoking end date: 03/29/11 Alcohol intake: never Substance use type: marijuana Comments At the time of my signature, I reviewed and agree with the nursing past medical, surgical, social, and family history. There is no relevant family history pertinent to the patient complaint. Exam Narrative: GENERAL: This is a well-nourished, well-developed adult, in no apparent distress. They are non ill-appearing, nontoxic appearing. HEAD: normocephalic, atraumatic. EYES: Sclera clear/white. Conjunctiva normal. Vision is grossly intact. Extraocular movements intact EARS: External ears normal, auditory canals clear and without drainage, TMs normal without perforation. Hearing grossly intact. NOSE: External nose normal with no obvious nasal discharge, nasal turbinates erythematous, no rhinorrhea. THROAT: Mucous membranes moist, posterior pharynx erythematous. Uvula midline. Postnasal drip present. NECK: Neck supple, non-tender without lymphadenopathy, masses or thyromegaly. CARDIOVASCULAR: Regular rate and rhythm without murmurs, gallops, or rubs. RESPIRATORY: Clear to auscultation. Breath sounds equal bilaterally. No wheezes, rales, or rhonchi. SKIN: warm, Dry, intact with no suspicious lesions or rash, good texture and turgor. NEURO: awake, alert, and oriented to person, place and time. There were no obvious focal neurologic abnormalities. EXTREMITIES: No joint tenderness, effusion, or edema noted. Course Course Emergency Course: Portions of this record may have been created with voice recognition software Level of Care: Express Care Visit Vital Signs Vital signs: Vital Signs Temperature 97.9 F 12/28/24 09:19 Pulse Rate 85 12/28/24 09:19 Respiratory Rate 18 12/28/24 09:19 Blood Pressure 133/79 12/28/24 09:19 Pulse Oximetry 100 12/28/24 09:19 Temperature 97.9 F 12/28/24 09:19 Pulse Rate 85 12/28/24 09:19 Respiratory Rate 18 12/28/24 09:19 Blood Pressure 133/79 12/28/24 09:19 Pulse Oximetry 100 12/28/24 09:19 Reviewed MDM - URI/Sore Throat MDM Narrative Medical decision making narrative: Rapid strep is negative. A throat culture is pending. Patient likely has a viral upper respiratory infection. Patient did have exposure to strep throat. Through shared decision making, patient would like to wait for throat culture results prior to any antibiotic therapy. Discussed supportive therapy. Patient nontoxic appearing and in no apparent distress. Discussed physical exam findings. Advised supportive measures and signs/symptoms to go to the ER. Pt is appropriate for outpt treatment and f/u. Differential Diagnosis Differential diagnosis: Likely upper respiratory infection, sinusitis, viral infection and pharyngitis Lab Data Attestation: I reviewed the patient's lab results. Labs: Lab Results 12/28/24 Range/Units 09:41 POC Grp A Strep Screen Negative (Negative) Critical Care Time Critical Care Time Critical Care Time: No Discharge Plan Discharge Clinical Impression: Upper respiratory infection Qualifiers: URI type: unspecified viral URI Qualified Code(s): J06.9 - Acute upper respiratory infection, unspecified Patient Disposition: Home Condition: Stable Instructions: Antibiotic Form, Upper Respiratory Infection (ED) Additional Instructions: Your rapid strep swab was negative today at [facility]. You will be notified in a few days if the culture comes back positive for strep, and appropriate antibiotics will be called in for you at that time. Your symptoms are likely due to a viral illness, which is not treated with antibiotics. Viral symptoms can be present for up to 10-14 days. Take Tylenol as needed for fever or pain. Follow the instructions on the bottle. Rest and stay hydrated. Follow up with your PCP in 3-5 days if symptoms are not improving. Go to the ER immediately if you develop difficulty breathing, chest pain, nausea, vomiting, or difficulty swallowing Patient Language: Slovak Prescriptions: No Action losartan 50 mg tablet 50 mg PO DAILY albuterol sulfate [Ventolin HFA] 90 mcg/actuation HFA aerosol inhaler 2 puff inhalation QID PRN (Reason: shortness of breath or wheezing) Qty: 8.5 0RF Follow-up/Referrals: Nacho,Janiya Tobin MD [Primary Care Provider] Time of Disposition: 10:06
== END 2024-12-28 10:11 | disposition home or self-care (01) ==
PROVIDERS: PCP Internal Medicine Gastroenterology
DX: J02.0 Streptococcal pharyngitis (principal); I10 Essential (primary) hypertension; Z87.891 Personal history of nicotine dependence
CPT/HCPCS: 87081; 87880; 99213; G0463